=== PATIENT | female | born 1995 | race Two or more races ===

== ENCOUNTER 2016-12-05 05:13 | Inpatient (IN) | payer MEDICAID ==
[2016-12-05] MEDS ORDERED: LACTATED RINGERS 1,000 ML ONE (05:17)
[2016-12-05] MEDS ORDERED: IV START KIT ONE (05:17)
[2016-12-05] MEDS ORDERED: CEFAZOLIN SODIUM 2 GRAM DUPLEX 2 G in Premix (D5W) 50 ml 1 EACH IV PRN (05:28)
[2016-12-05 05:37] VITALS: BMI 24.6
[2016-12-05] MEDS: LACTATED RINGERS 1,000 ML IV SCH ×4 (05:57→18:27)
[2016-12-05] MEDS ORDERED: CEFAZOLIN SODIUM 2 GRAM DUPLEX 50 ML IV ONE (06:11)
[2016-12-05 06:17] LABS: HEMATOCRIT 36.3 % (37.0-47.0); HEMOGLOBIN 12.7 gm/l (12.0-16.0); MEAN CELL VOLUME 83.8 fl (81.0-99.0); MEAN CORPUSCULAR HEMOGLOBIN 29.3 pg (27.0-31.0); RED CELL DISTRIBUTION WIDTH 12.8 % (11.5-14.5)
[2016-12-05] MEDS ORDERED: MORPHINE SULFATE (DURAMORPH) 1 MG/ML 10ML AMP ONE (07:09)
[2016-12-05] MEDS ORDERED: BUPIVACAINE 0.75% SPINAL AMPUL 2 ML ONE (07:36)
[2016-12-05] MEDS ORDERED: ONDANSETRON 4 MG/2ML 2 ML VIAL ONE (07:36)
[2016-12-05] MEDS ORDERED: GLYCOPYRROLATE 0.2 MG/ML 1ML VIAL ONE (07:36)
[2016-12-05] MEDS ORDERED: SPINAL PROCEDURAL TRAY 1 EACH ONE (07:36)
[2016-12-05] MEDS ORDERED: OXYTOCIN 10 UNITS/ML VIAL ONE (08:19)
[2016-12-05] MEDS ORDERED: DIPHENHYDRAMINE HCL 25 MG CAPSULE PO PRN (08:42)
[2016-12-05] MEDS ORDERED: LANOLIN 50 APPLIC/7G TUBE TP PRN (08:42)
[2016-12-05] MEDS ORDERED: DIPHENHYDRAMINE HCL 50 MG/1 ML VIAL IV PRN ×2 (08:42→08:45)
[2016-12-05] MEDS ORDERED: ONDANSETRON 4 MG/2ML 2 ML VIAL IV PRN ×2 (08:42→08:45)
[2016-12-05] MEDS ORDERED: NALOXONE HCL 0.4 MG/ML VIAL IV PRN (08:45)
[2016-12-05] MEDS ORDERED: EPHEDRINE SULFATE 50 MG/ML 1ML VIAL IV PRN (08:45)
[2016-12-05] MEDS ORDERED: PROMETHAZINE HCL 25 MG/ML VIAL IM PRN (08:45)
[2016-12-05] MEDS ORDERED: MORPHINE SULFATE 4 MG/ML SYRINGE IV PRN (08:45)
[2016-12-05] MEDS ORDERED: MORPHINE SULFATE 10 MG/ML SYRINGE IV PRN (08:45)
[2016-12-05] MEDS ORDERED: NALBUPHINE HCL 20 MG/ML AMP IV PRN (08:45)
[2016-12-05] MEDS ORDERED: MORPHINE SULFATE 2 MG/ML SYRINGE IV PRN (08:45)
--- NOTE | 2016-12-05 08:50 | PDOC37 ---
Procedure: Repeat LT Section, and PPBTL Date of Procedure: 12/05/16 Preoperative Diagnosis: 1. 39 week intrauterine . 2. undesired fertility Postoperative Diagnosis: Same Surgeon: Bridgette Qiu MD Assist: Dave Perdue MD Indication for Procedure: 21 year old, at 39 weeks 0 days here for repeat LTCS and BTL Anesthesia: Spinal with Duramorph Complications: None Estimated Blood Loss: 500 mLs IV Fluids: 100 mLs of LR Medications:2 gm of Ancef for routine prophylaxis.20 units of Pitocin. Urine Output: 300 mLs of clear urine Findings: Fluid clear. Normal uterus, ovaries, and tubes. Procedure: The patient was taken to the operating room where spinal anesthesia was found to be adequate. She was then prepared and draped in the normal sterile fashion in the dorsal supine position with a leftward tilt. A timeout was performed. A Pfannensteil skin incision was then made with the scalpel and carried through to the underlying layer of fascia with the scalpel. The fascia was incised in the midline and the incision extended laterally with the Whitmore scissors. The superior aspect of the fascial incision was then grasped with the Tirso clamps, elevated, and the underlying rectus muscles dissected off bluntly and sharply where needed. Attention was then turned to the inferior aspect of the incision which, in a similar fashion, was grasped, tented up with the Tirso clamps, and the rectus muscle dissected off bluntly and sharply with Whitmore scissors. The rectus muscles were then in the midline, and the peritoneum was identified and entered bluntly. The peritoneal incision was then extended with good visualization of the bladder. The bladder blade was then inserted and the vesicouterine peritoneum identified, grasped with pick-ups and entered sharply with the Metzenbaum scissors. The incision was then extended laterally and the bladder flap created digitally. The bladder blade was then reinserted and the lower uterine segment incised in a transverse fashion with the scalpel. The uterine incision was then extended laterally by pulling superolaterally on both sides. Membranes were ruptured and fluid wasclear. The bladder blade was removed the 's head was flexed out of position and delivered atraumatically. The nose and mouth were suctioned with bulb suction and the cord was clamped and cut. The was handed off to the waiting icu staff nurse. cord blood obtained. The placenta was then delivered with gentle cord traction. The uterus was then exteriorized and cleared of all clots and debris. The uterine incision was repaired with 0 vicryl in a running, locked fashion. A second layer of the same suture was used in an imbricating fashion to obtain excellent hemostasis. Bilateral tubal ligation: Attention was then turned to the patient's bilateral tubal ligation. A [place] was used to pick up attendant the right fallopian tube and a [place]-type of tubal ligation was performed using 0 plain gut suture, ligating each tube twice. The midportion was then excised and submitted for pathology. The same procedure was done on the opposite side. some bleeding noted on the left mesosalpinx, and this was oversewn with 4.0 vicryl. The gutters were cleared of all clots. The uterus was returned to the abdomen. The peritoneum was closed with . The fascia was reapproximated with 0 Vicryl in a running fashion. The subcutaneous tissue was reapproximated with codi. The skin was closed with codi. The patient tolerated the procedure well. Sponge, lap and needle counts were correct times three. A debriefing was held at the end of the procedure with anesthesia and nursing staff. The patient was taken to the recovery room in stable condition.
[2016-12-05] MEDS: KETOROLAC TROMETHAMINE 30 MG/ML 1 ML VIAL IV SCH ×2 (10:05→17:03)
[2016-12-05] MEDS: DOCUSATE SODIUM 100 MG CAPSULE PO SCH ×2 (13:41→21:44)
[2016-12-05] MEDS: PRENATAL VIT/FE FUMARATE/FA 1 TABLET PO SCH (14:20)
[2016-12-05] MEDS ORDERED: SODIUM CHLORIDE 0.9% FLUSH 10 ML ONE ×2 (16:58→23:57)
[2016-12-06] MEDS: KETOROLAC TROMETHAMINE 30 MG/ML 1 ML VIAL IV SCH ×3 (00:01→14:21)
[2016-12-06] MEDS ORDERED: SODIUM CHLORIDE 0.9% FLUSH 10 ML ONE ×2 (06:00→14:52)
[2016-12-06 06:26] LABS: HEMATOCRIT 31.1 % (37.0-47.0); HEMOGLOBIN 10.8 gm/l (12.0-16.0)
[2016-12-06] MEDS: LACTATED RINGERS 1,000 ML IV SCH ×3 (06:58→18:38)
[2016-12-06] MEDS: PRENATAL VIT/FE FUMARATE/FA 1 TABLET PO SCH (08:35)
[2016-12-06] MEDS: DOCUSATE SODIUM 100 MG CAPSULE PO SCH ×3 (08:35→23:28)
[2016-12-06] MEDS ORDERED: KETOROLAC TROMETHAMINE 30 MG/ML 1 ML VIAL IV PRN (08:45)
--- NOTE | 2016-12-06 09:27 | PDOC44 ---
- Subjective Day: 1 Doing well. Pain controlled. Minimal lochia. positive flatus. Reports Flatus, Reports Pain Tolerable, Reports , Reports Lochia Light, Reports Tolerating Clear Liquids - Objective Temp Pulse Resp BP Pulse Ox 97.7 F 56 16 89/53 100 12/06/16 08:10 12/06/16 08:10 12/06/16 08:10 12/06/16 08:10 12/05/16 13:49 Lab Results 12/06/16 06:10 Hgb 10.8 L Hct 31.1 L Current Medications Generic Name Dose Route Start Last Admin Trade Name Freq PRN Reason Stop Dose Admin Diphenhydramine HCl 25 - 50 mg 12/05/16 08:42 Benadryl PO Q6H PRN Itching (Mild/Moderate) Diphenhydramine HCl 25 - 50 mg 12/05/16 08:42 Benadryl IV Q6H PRN Itching (Severe) Docusate Sodium 100 mg 12/05/16 09:00 12/06/16 08:35 Colace PO 100 mg BID KENNA Administration Emollient Ointment 1 applic 12/05/16 08:42 [id number] TP PRN PRN sore nipples Lactated Ringer's 1,000 mls @ 125 mls/hr 12/05/16 08:45 12/06/16 08:54 Lactated Ringers IV Not Given .Q8H KENNA Ibuprofen 800 mg 12/05/16 08:42 Motrin PO Q6H PRN Pain Ketorolac Tromethamine 30 mg 12/06/16 08:45 Toradol IV Q6H PRN Pain (Mild/Moderate) Multivi/Iron Carb/Fe Sulf/FA/Prenat 1 tab 12/05/16 09:00 12/06/16 08:35 Plus PO 1 tab DAILY KENNA Administration Ondansetron HCl 4 mg 12/05/16 08:42 Zofran IV Q6H PRN Nausea/Vomiting Oxycodone/Acetaminophen 1 - 2 tab 12/05/16 08:42 Percocet 5/325 PO Q4H PRN Pain (Moderate) - Physical Exam General: Afebrile Neurological: Alert HEENT: Atraumatic Lungs: Clear to Auscultation Bilaterally Cardiovascular: Regular Rate and Rhythm Breast: Soft Fundus: Firm, Midline Abdomen: Normal Bowel Sounds Rectal Exam: Deferred Extremities: Other (nt, no edema) Skin: Normal Color Wound AUDIO VISUAL PROJECT MANAGER: Dressing in Place - Problems:Assessment/Plan (1) S/P repeat low transverse Status: AcuteAssessment/Plan: POD #1, doing well. cont. routine care advance diet ambulate and shower and remove dressing hgb stable at 10.
[2016-12-06] MEDS: OXYCODONE/ACETAMINOPHEN 5/325 MG TABLET PO PRN ×2 (12:22→19:41)
[2016-12-06] MEDS: IBUPROFEN 800 MG TABLET PO PRN ×2 (14:47→20:48)
[2016-12-07] MEDS: IBUPROFEN 800 MG TABLET PO PRN (02:53)
[2016-12-07] MEDS: LACTATED RINGERS 1,000 ML IV SCH ×2 (04:56→11:32)
[2016-12-07 08:28] VITALS: BP 103/55
[2016-12-07] MEDS: PRENATAL VIT/FE FUMARATE/FA 1 TABLET PO SCH (08:28)
[2016-12-07] MEDS: DOCUSATE SODIUM 100 MG CAPSULE PO SCH (08:28)
[2016-12-07] MEDS: OXYCODONE/ACETAMINOPHEN 5/325 MG TABLET PO PRN ×2 (08:37→08:40)
--- NOTE | 2016-12-07 12:38 | PDOC39B ---
Hospital Course: ADMIT DATE: 12/05/16 DISCHARGE DATE: 12/07/16 ADMISSION DIAGNOSES: Term iup, h/o c sxn desires rcs with btl. PROCEDURES: rcs with btl HISTORY OF PRESENT ILLNESS: 21 year old G3 T2 L2 at 39 weeks 0 days presenting for rcs with btl. HOSPITAL COURSE: The patient presented to [facility] and underwent scheduled rcs with btl without complications. By day of discharge the patient is ambulating, eating, voiding, and passing flatus without difficulty. Pain is controlled and lochia is appropriate. She is breast feeding. - Physical Exam Vital Signs: Temp Pulse Resp BP Pulse Ox 98.3 F 60 16 103/55 100 12/07/16 08:22 12/07/16 08:22 12/07/16 08:22 12/07/16 08:22 12/05/16 13:49 General: Afebrile Psych/Mental Status: Mood/Affect Appropriate, Bonding Well Neurological: Alert Lungs: Clear to Auscultation Bilaterally Cardiovascular: Regular Rate and Rhythm, No Murmur Breast: Soft, Skin intact Fundus: Firm, Midline, At Umbilicus Abdomen: Normal Bowel Sounds Extremities: No Edema, No Tenderness Skin: Warm, Dry, No Rash Wound: Well Approximated, [place] Intact, No Edema - Discharge Diagnosis (1) S/P repeat low transverse Status: AcuteAssessment/Plan: POD #2, doing well. cont. routine care tolerating regular diet. hgb stable at 10. Home with po meds, f/u in 2 days to remove codi. - Discharge Plan Condition: Good Disposition: Home Prescriptions: Docusate Sodium [Colace] 100 mg PO DAILY #30 cap Ibuprofen [IBUPROFEN 600 MG TABLET (SHF)] 1 tab PO Q6H PRN #30 tablet PRN Reason: Pain FERROUS SULFATE (65 Fe) [IRON FERROUS SULFATE 325 MG TABLET (SHF)] 325 mg PO DAILY #30 tab Oxycodone HCl/Acetaminophen [PERCOCET 5/325 MG TABLET (SHF)] 1 - 2 tab PO Q4H PRN #20 tab PRN Reason: Pain Follow-Up: Saima Irvin PA [Referring] - 12/09/16
--- NOTE | 2016-12-09 14:52 | SURGPATH ---
[facility] [address] [place] [id number] Patient Name: SHIELA CARTER MR#: [id number] : 1995 Gender: F Specimen #: [id number] Collected: 12/05/2016 Received: 12/06/2016 Reported: 12/09/2016 Submitting Phys: DESTINY CASE Copy To Phys: [facility] Clinical History / Pre-Operative Diagnosis: NONE PROVIDED Specimen Source / Surgical Procedure Performed: BILATERAL FALLOPIAN TUBE SEGMENTS (STITCH ON RIGHT TUBE) Interpretation: FALLOPIAN TUBES, BILATERAL, PARTIAL SALPINGECTOMY: - FULL CROSS SECTION OF BILATERAL FALLOPIAN TUBE SEGMENTS SHOWING NO DIAGNOSTIC ABNORMALITIES. Electronically Signed Out Kashif Ramsey M.D., Ph.D. Gross Description: The specimen is received in a formalin filled container labeled with the patient's name and "fallopian tubes". Two cylindrical segments of mathews tissue are 1.0 x 0.5 cm and 2.0 x 0.5 cm. The longer segment has an attached suture and is inked black. A credit resolution representative cross section of each is submitted in one cassette. Joe Smith PGhazala Microscopic Description: Full cross section of bilateral fallopian tube segments microscopically examined. 1: [id number] Z30.2
== END 2016-12-07 13:50 | disposition home or self-care (01) | DRG 766 ==
LOC: FBC 05:13 → EDSTATUS 12-12 09:00
PROVIDERS: ADMIT Family Medicine; ATTEND Family Medicine
PROC: 10D00Z1 Extraction of Products of Conception, Low, Open Approach (ICD-10-PCS; principal; 2016-12-05)
PROC: 0UL70ZZ Occlusion of Bilateral Fallopian Tubes, Open Approach (ICD-10-PCS; 2016-12-05)
DX: O34.211 Maternal care for low transverse scar from previous cesarean delivery (principal); Z3A.39 39 weeks gestation of pregnancy; Z37.0 Single live birth; Z30.2 Encounter for sterilization